=== PATIENT | female | born 1975 | race Caucasian/White ===

== ENCOUNTER → 2017-03-29 | Outpatient (CLI) | payer BC ==
--- NOTE | 2017-03-31 08:16 | RAD ---
2-D and 3-D mammogram Indication: Routine screening Technique: 2-D and 3-D mammogram of the bilateral breasts. The study was interpreted with the benefit of CAD. Comparison: Previous mammogram from 2015. Findings: Breast density category B: There are scattered areas of fibroglandular density. The skin and nipples are within normal limits. There are no suspicious calcifications, spiculated masses or areas of architectural distortion. Impression: No mammographic evidence of malignancy. Stable mammogram. BI-RADS 1: Negative. RECOMMENDED FOLLOW-UP: Routine yearly screening mammography. PQRS compliance statement: Patient information was entered into a reminder system with a target due date 03/29/2018 for the next mammogram. Mammography is a sensitive method for finding small breast cancers, but it does not detect them all and is not a substitute for careful clinical examination. A negative mammogram does not negate a clinically suspicious finding and should not result in delay in biopsying a clinically suspicious abnormality. "Our facility is accredited by the [employer] Mamm[employer]." [id number]
== END | disposition home or self-care (01) ==
LOC: MAMMO 13:00
PROVIDERS: ATTEND Obstetrics & Gynecology
DX: Z12.31 Encounter for screening mammogram for malignant neoplasm of breast (principal)
CPT/HCPCS: 77063; G0202; 77067

== ENCOUNTER → 2018-09-26 | Outpatient (CLI) | payer BC ==
--- NOTE | 2018-09-26 10:30 | RAD ---
DATE: 09/26/2018 EXAM: MAMMO ROBERT SCREENING BILATERAL HISTORY: Routine screening COMPARISON: 03/29/2017 This study was interpreted with the benefit of Computerized Aided Detection (CAD). Breast Density: SCATTERED The breast parenchyma shows scattered fibroglandular densities. Breast parenchyma level B. FINDINGS: 2-D and 3-D tomosynthesis imaging was performed in CC and MLO projections. No new or enlarging breast densities are seen. No suspicious microcalcifications are evident. IMPRESSION: Stable mammograms without evidence of malignancy. BI-RADS CATEGORY: 1 NEGATIVE RECOMMENDED FOLLOW-UP: 12M 12 MONTH FOLLOW-UP PQRS compliance statement: Patient information was entered into a reminder system with a target due date for the next mammogram. Mammography is a sensitive method for finding small breast cancers, but it does not detect them all and is not a substitute for careful clinical examination. A negative mammogram does not negate a clinically suspicious finding and should not result in delay in biopsying a clinically suspicious abnormality. "Our facility is accredited by the [employer]amm[employer]."
== END | disposition home or self-care (01) ==
LOC: MAMMO 09:49
PROVIDERS: ATTEND Obstetrics & Gynecology
DX: Z12.31 Encounter for screening mammogram for malignant neoplasm of breast (principal)
CPT/HCPCS: 77063; 77067

== ENCOUNTER → 2019-10-31 | Outpatient (CLI) | payer BC ==
--- NOTE | 2019-11-01 17:17 | RAD ---
History: Routine Screening. Technique: Bilateral digital mammographic routine views were obtained with 2-D and 3-D technique including CAD - computer aided detection. Comparison: 09/26/2018. Findings: Breast Tissue Density A : The breast tissue is predominately fatty replaced. There are no suspicious masses, microcalcifications or areas of architectural distortion. Impression: Negative mammogram. BI-RADS Category 1: Negative. Normal interval followup. . A mammogram does not have 100% sensitivity and therefore a negative imaging study should not delay further work up of a suspicious abnormality. The patient will receive a letter with the results in the mail. Patient information is entered into the reminder system with a target due date for the next screening mammogram. The patient will receive a reminder. "Our facility is accredited by the [employer]ammography [employer]." BI-RADS 1 -- negative findings (within normal)
== END | disposition home or self-care (01) ==
LOC: MAMMO 11:27
PROVIDERS: ATTEND Obstetrics & Gynecology
DX: Z12.31 Encounter for screening mammogram for malignant neoplasm of breast (principal)
CPT/HCPCS: 77063; 77067

== ENCOUNTER → 2020-11-05 | Outpatient (CLI) | payer BC ==
--- NOTE | 2020-11-06 09:47 | RAD ---
History: Routine Screening 3-D DIGITAL MAMMOGRAPHY 3-D digital breast tomosynthesis images of both breasts in the CC and MLO projections were performed. Computer aided detection (CAD) was utilized. Previous: 2016 through 2019. There are scattered fibroglandular densities (Category B density).There are no suspicious masses, adelaida picious microcalcifications or areas of architectural distortion. IMPRESSION: Negative mammogram. Patient information was entered into the reminder system with a tar get due date for the next screening mammogram of November 06, 2021. Routine annual screening mammogram in one year advised. BI-RADS Category 1 negative A mammogram does not have 100% sensitivity and therefore a negative imaging study should not delay fu rther work up of any clinically suspicious abnormality. If your mammogram demonstrates that you have dense breast tissue, which could hide abnormalities, and if you have other risk factors for breast cancer that have been identified, you might benefit from s upplemental screening tests that may be suggested by your ordering physician. Dense breast tissue, i n and of itself, is a relatively common condition. This information is not provided to cause undue c oncern, but rather to raise your awareness and to promote discussion with your physician regarding th e presence of other risk factors, in addition to dense breast tissue. A report of your mammography re sults will be sent to you and your physician. You should contact your physician if you have any ques tions or concerns regarding this report. "Our facility is accredited by the [employer] Mammography [employer]." Electronically signed by: Marvin Perez MD (11/06/2020 9:45 AM) [id number]
== END ==
LOC: MAMMO 15:19
PROVIDERS: ATTEND Obstetrics & Gynecology
DX: Z12.31 Encounter for screening mammogram for malignant neoplasm of breast (principal)
CPT/HCPCS: 77063; 77067

== ENCOUNTER → 2021-06-10 | Outpatient (CLI) | payer BC ==
[2021-06-10 10:20] LABS: ALBUMIN 3.1 g/dL (3.4-5.0); ALBUMIN/GLOBULIN RATIO 0.8 (1.0-1.7); CREATININE 0.7 mg/dL (0.6-1.0); GFR 90.1; POTASSIUM 3.9 mmol/L (3.5-5.1); TOTAL BILIRUBIN 0.6 mg/dL (0.2-1.0); TOTAL PROTEIN 7.1 g/dL (6.4-8.2)
[2021-06-10 10:30] LABS: BASO # 0.1 x10^3/uL (0.0-0.2); BASO % 1 % (0-3); EOS # 0.1 x10^3/uL (0.0-0.7); EOS % 2 % (0-3); HEMATOCRIT 36.9 % (36.0-47.0); HEMOGLOBIN 12.1 g/dL (12.0-15.5); LYMPH # 1.4 x10^3/uL (1.0-4.8); LYMPH % 25 % (24-48); MEAN CORPUSCULAR HEMOGLOBIN 32 pg (25-35); MEAN CORPUSCULAR HGB CONC 33 g/dL (31-37); MEAN CORPUSCULAR VOLUME 96 fL (79-100); MONO # 0.6 x10^3/uL (0.0-1.1); MONO % 12 % (0-9); NEUT # 3.2 x10^3uL (1.8-7.7); NEUT % 60 % (31-73); PLATELET COUNT 266 x10^3/uL (140-400); RED BLOOD COUNT 3.83 x10^6/uL (3.50-5.40); RED CELL DISTRIBUTION WIDTH 13.2 % (11.5-14.5); WHITE BLOOD COUNT 5.4 x10^3/uL (4.0-11.0)
[2021-06-10 16:34] LABS: THYROID STIM HORMONE (TSH) 7.582 uIU/mL (0.358-3.740)
[2021-06-11 02:07] LABS: HEMOGLOBIN A1C 5.3 % (4.8-5.6)
== END ==
LOC: LAB 08:42
PROVIDERS: ATTEND Specialist
DX: Z01.419 Encounter for gynecological examination (general) (routine) without abnormal findings (principal); Z11.3 Encounter for screening for infections with a predominantly sexual mode of transmission; E78.2 Mixed hyperlipidemia; E55.9 Vitamin D deficiency, unspecified; E66.01 Morbid (severe) obesity due to excess calories; Z79.899 Other long term (current) drug therapy
CPT/HCPCS: 36415; 80053; 80061; 82306; 83036; 84425; 84443; 85025; 86592; 86695; 86703; 86803; 87340